=== PATIENT | female | born 1995 | race Two or more races ===

== ENCOUNTER 2016-10-30 16:29 | Observation (INO) | payer OTHER ==
[2016-10-30] MEDS ORDERED: EPSOM SALT 454 GM TP PRN (16:44)
[2016-10-30] MEDS ORDERED: LR 1,000 ML IV PRN (16:44)
[2016-10-30] MEDS ORDERED: OXYTOCIN/RINGERS LACTATE 1,000 ML IV PRN (16:44)
[2016-10-30] MEDS ORDERED: LIDOCAINE 1% 30 ML SDV SC PRN (16:44)
[2016-10-30] MEDS ORDERED: TERBUTALINE SULFATE 1 MG/ML VIAL IV PRN (16:44)
[2016-10-30] MEDS ORDERED: IBUPROFEN 600 MG TAB PO PRN (16:44)
[2016-10-30] MEDS ORDERED: AMPICILLIN SODIUM 2 GM in NS 100 ML IV ONE (16:44)
[2016-10-30] MEDS ORDERED: OLIVE OIL 118 ML BTL MISC PRN (16:44)
[2016-10-30] MEDS ORDERED: LIDOCAINE 1% 30 ML SDV ONE (17:16)
[2016-10-30] MEDS ORDERED: OLIVE OIL 118 ML BTL ONE (17:17)
[2016-10-30] MEDS ORDERED: AMMONIA AROMATIC 1 EACH AMP IH ONE (17:17)
[2016-10-30] MEDS ORDERED: OXYTOCIN 10 UNIT/ML VIAL ONE (17:17)
[2016-10-30] MEDS ORDERED: TERBUTALINE SULFATE 1 MG/ML VIAL ONE (17:17)
[2016-10-30] MEDS ORDERED: MISOPROSTOL 200 MCG TAB ONE (17:18)
--- NOTE | 2016-10-30 19:12 | GHP ---
[f rep st] PREOP HISTORY AND PHYSICAL DATE OF ADMISSION: 10/30/2016 ADMITTING DIAGNOSES: A 21-year-old, 3, para 1-0-1-1, at 39 weeks 4 days with an estimated due date of 11/02/2016 per outside records, presents complaining of contractions every 15 minutes since 5 o'clock this morning. The patient desires trial of labor after . HISTORY OF PRESENT COMPLAINT: The patient reports positive movement. Denies leaking of fluid, vaginal bleeding. States contractions started around 5 o'clock this morning, occurring 4 times per hour. The patient desires . PAST MEDICAL HISTORY: Elevated BMI. PAST SURGICAL HISTORY: 2013. MEDICATIONS: vitamin. ALLERGIES: No known drug allergies. 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 FAMILY HISTORY: Noncontributory. 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 Denies alcohol, tobacco, or drug use. OB HISTORY: Current complicated by prior . Desires TOLAC. GBS positive. 2014 at term for arrest of descent. Infant was in OP presentation, 7 pounds. 2016, SAB, no D & C. LABS: A positive, antibody negative, HIV negative, hepatitis B negative, syphilis negative, rubella immune, gonorrhea chlamydia negative. First trimester screen negative. One hour GTT 87. GBS positive. The patient transferred care at [address] [facility]. PHYSICAL EXAM: VITAL SIGNS: On physical exam vital signs are stable. GENERAL APPEARANCE: Alert and oriented x3. HEART: Rate regular. LUNGS: Clear to auscultation bilaterally. ABDOMEN: Gravid, nontender. SVE: 3/50/-3 at 1800. Cervix is soft, midline. No change from exam in office 2 hours ago. heart tracing category 1. heart tones 135 with moderate variability, positive accelerations, no decelerations. Contractions occasional. ASSESSMENT: A 21-year-old, 3, para 1-0-1-1, at 39 weeks and 4 days, presents in prodromal labor. Cervix unchanged from check in office 2 hours ago. PLAN: 1. Discharge to home. 2. Labor precautions. 3. Return if in labor. 4. Follow up Sunday for scheduled repeat . /[id number]/MODL MTDD
[2016-10-30] MEDS ORDERED: AMPICILLIN SODIUM 1 GM in NS 100 ML IV SCH (20:45)
== END 2016-10-30 19:11 | disposition home or self-care (01) ==
LOC: FLD 16:29 → INTOOBSV 16:29
PROVIDERS: ADMIT Advanced Practice Midwife; ATTEND Advanced Practice Midwife
DX: Z34.83 Encounter for supervision of other normal pregnancy, third trimester (principal); Z3A.39 39 weeks gestation of pregnancy
CPT/HCPCS: 59025; G0378; J0290; J2590; J3105

== ENCOUNTER 2016-11-02 10:35 | Inpatient (IN) | payer OTHER ==
--- NOTE | 2016-10-17 12:19 | GHP ---
[f rep st] HISTORY AND PHYSICAL Amended report DATE OF ADMISSION: 11/02/2016 ADMITTING DIAGNOSIS: 1. Intrauterine at 40 weeks and 1/7 days. 2. Previous section. HISTORY OF PRESENT ILLNESS: Patient is a 21-year-old, 3, para 1-0-1-1, at 40 weeks and 1/7 days with an estimated due date 11/02/2016 by last menstrual period 01/27/2016. The patient does have a history of a prior C- section secondary to a prolonged 2nd stage of labor. The patient desires a at this time and if still desires a repeat at 40 weeks. The patient presents to [facility] as a late transfer of care at 36 weeks and 5 days. This was due to an insurance change. All records were received and reviewed. The patient did have 1st trimester integrated screening , ultrasound and blood work which were all normal. The patient is negative for cystic fibrosis carrier. She declines SMA, fragile X screening at present. She is positive GBS on most recent screen. The patient did have both the flu vaccine and Tdap done July 2016. PAST OB HISTORY: In 2013, she had a full-term baby girl via C section, weighing 7 pounds 12 ounces at 40 weeks. She was in labor for 24 hours and had a prolonged 2nd stage of labor, baby was direct OP and she pushed x 6 hours. In 2015, she had a spontaneous ; did not require a D and C. 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 Cycles are regular every 28 days x4 days. She did have a positive test 03/28/2016 and last menstrual period 01/27/2016. Denies any history of abnormal Pap smears or any exposure to STDs. She did have a normal Pap smear, Gonorrhea and chlamydia cultures done in February of 2016 in beginning of the . PAST MEDICAL HISTORY: Unremarkable. PAST SURGICAL HISTORY: C section. MEDICATIONS: vitamins. ALLERGIES: No known drug allergies. SOCIAL HISTORY: Patient is . She lives with her Richard, and their daughter. Patient denies any alcohol or tobacco or illicit drug use. FAMILY HISTORY: Mother has diabetes, depression. Father is alcoholic and has a history of drug abuse. LABS: Patient is A positive, antibody screen negative. RPR nonreactive. Rubella immune. Hepatitis B surface antigen negative. HIV negative. Cystic fibrosis negative. Hepatitis C antibody negative. The urine culture first trimester is negative. Pap, gonorrhea, chlamydia cx's all negative. First trimester screen was negative in April 2016, as well as blood work. H and H 12.8 and 39.3. 1-hour Glucola normal at 87. GBS is positive 09/29/2016. PHYSICAL EXAM: VITAL SIGNS: On admission, vital signs are stable. Patient afebrile. GENERAL: Well-nourished, well-developed female in no apparent distress. Alert and oriented x3. CARDIOVASCULAR: Regular rate and rhythm. LUNGS: Clear to auscultation. ABDOMEN: Gravid, soft, nontender, nondistended. PELVIC: Deferred. EXTREMITIES: Normal to inspection without calf tenderness. Without edema. ASSESSMENT: Patient is a 21-year-old, 3, para 1-0-1-1, at 40 weeks and 1/7 days, who presents with a history of a previous section, for a repeat section. PLAN: 1. Admit to labor and delivery. 2. Consents were obtained in the office. Risks, benefits, alternatives were reviewed with the patient including, but not limited to, bleeding, infection, damage to surrounding organs. consents were also obtained. Pt is aware of risks and wants to proceed with repeat if still at 40 weeks. 3. 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 4. SCDs for DVT prophylaxis. /[id number]/MODL Add MRN#, 10/30/16, 11/02/16, lloyd COOK
[2016-11-02] MEDS ORDERED: TERBUTALINE SULFATE 1 MG/ML VIAL IV PRN (11:53)
[2016-11-02] MEDS ORDERED: EPSOM SALT 454 GM TP PRN (11:53)
[2016-11-02] MEDS ORDERED: LIDOCAINE 1% 30 ML SDV SC PRN (11:53)
[2016-11-02] MEDS ORDERED: OLIVE OIL 118 ML BTL MISC PRN (11:53)
[2016-11-02] MEDS ORDERED: AMPICILLIN SODIUM 2 GM in NS 100 ML IV ONE (11:53)
[2016-11-02] MEDS ORDERED: OXYTOCIN/RINGERS LACTATE 1,000 ML IV PRN (11:53)
[2016-11-02 12:13] LABS: % IMMATURE GRANULYOCYTES 0.8 % (0.0-1.1); ABSOLUTE IMMATURE GRANULOCYTES 0.08 10^3/uL (0.00-0.10); ADD DIFF? NO; ADD MORPH? NO; ADD SCAN? NO; ATYPICAL LYMPHOCYTE FLAG 10 (0-99); FRAGMENT RBC FLAG 0 (0-99); HEMATOCRIT 36.5 % (38.0-47.0); LEFT SHIFT FLG 0 (0-99); LIPEMIA HEMOLYSIS FLAG 80 (0-99); MEAN CELL HEMOGLOBIN 27.6 pg (27.9-34.1); MEAN CELL HEMOGLOBIN CONCENTR. 32.9 g/dL (32.4-36.7); MEAN CELL VOLUME 84.1 fL (81.5-99.8); MEAN PLATELET VOLUME 11.2 fL (8.7-11.7); PLATELET CLUMPS FLAG 0 (0-99); PLATELET COUNT 284 10^3/uL (150-400); RED BLOOD CELL COUNT 4.34 10^6/uL (4.18-5.33); RED CELL DISTRIBUTION WIDTH 14.3 % (11.5-15.2)
[2016-11-02] MEDS: LR 1,000 ML IV PRN (12:30)
--- NOTE | 2016-11-02 12:40 | GHP ---
[f rep st] PREOP HISTORY AND PHYSICAL DATE OF ADMISSION: 11/02/2016 ADMITTING DIAGNOSIS: Intrauterine at 40-and-0/7 weeks' gestation with spontaneous rupture of the membranes and spontaneous labor. HISTORY OF PRESENT ILLNESS: The lady is a 21-year-old, 3, para 1-0-1-1, with a last menstru al period of 01/27/2016 and EDC of 11/02/2016, which was confirmed by a 1st trimester ultrasound. Angela fabijose transferred care at 36-and-5/7 to [facility] and had good care. The patient has a history of a with G1 secondary to arrest of descent. She had 5-hour 2nd stage, and the baby was OP presentation, weighed 7 pounds 12 ounces. She has been consented on typ es of mode of delivery for this baby, and desires to have a trial of labor after section. She understands the risks and benefits of this. She had spontaneous rupture of membranes at 8 a.m., with clear fluid, has had increasing contraction s over the last several hours, and they are currently every 5-10 minutes. RISK FACTORS: Late transfer of care, history of , desires TOLAC and positive GBS. PAST OBSTETRICAL HISTORY: In January of 2014, she had a viable female, 7 pounds 12 ounces, by C-sectio n secondary to failure to descend, 5-hour 2nd stage, and OP presentation. In September of 2015 she had a spontaneous . No D and C, and this is her 3rd . PAST GYNECOLOGICAL HISTORY: She has no significant gynecological history. She has a history of a N explanon removed. No history of abnormal Paps or any sexually transmitted diseases. MEDICAL HISTORY: She has no significant medical problems. The only surgery she has had is the C-se ction. She has increased BMI, weight is 229 pounds. ALLERGIES: No known drug allergies. MEDICATIONS: Include vitamins and DHA. LABS: She is A positive, antibody negative, RPR nonreactive, rubella immune, hepatitis negative, HI V negative. Cystic fibrosis negative. Hep C antibody is negative. Pap normal. Gonorrhea and chla mydia negative. One-hour GTT 87. GBS is positive. She declined genetic screening tests. SOCIAL HISTORY: She is . She lives with her . She is a [id number] mom. He works as an coil machine supervisor. Denies tobacco, alcohol and drug use. FAMILY HISTORY: Her mother has adult-onset diabetes and depression. Father has alcohol and drug ab use. No other medical problems in the family. OBJECTIVE: VITAL SIGNS: Today she is afebrile. Vital signs are stable. OBSTETRIC: heart tones are 120s to 130s, reactive, moderate variability, category 1. She is candy every 10 minutes. Cervix is 5, 80%, and -1. Grossly ruptured but nitrazine positive fo r clear fluid. The baby is cephalic. ASSESSMENT/PLAN: 21-year-old, 3, para 1-0-1-1, at 40 weeks', with spontaneous rupture of me mbranes in spontaneous labor. Patient desires trial of labor after section. The patient h as an IV getting started, and she will have ampicillin per protocol for GBS prophylaxis. She will h ave continuous monitoring and expectant labor management with careful monitoring of progress. Anesthesia and OB will be in-house. /[id number]/MODL
--- NOTE | 2016-11-02 14:13 | OBPROG ---
OBG Progress Note Assessment/Plan: Assessment: 21 y/o @ 40 weeks with SROM and attempting TOLAC Plan: Good cervical change with current contraction pattern, will continue expectant labor management. We discussed pain management options and she may try to get in the tub. We discussed IV Fentanyl prn, but not after 8 cm dilation, NO and possible epidural. She is considering. status reassuring. Anesthesia and OB are in the hospital today observing TOLAC. 11/02/16 14:11 Subjective: Pt is feeling stronger and longer contractions that still feel to be about 10 minutes apart. Objective: 11/02/16 11:30 Patient ABO/Rh A POSITIVE 11/02/16 11:30 - SVE Dilation (cm): 6 Effacement (%): 90 Station: 0 Current Contraction Pattern: Regular (Q10) FHR (bpm): 140 FHR Pattern Variability: Moderate FHR Category: 1 Membranes: SROM Amniotic Fluid Color: Clear ICD10 Worksheet Patient Problems: Problems Problem Status Onset Previous delivery affecting Acute Spontaneous onset of labor Acute - ICD10 Problem Qualifiers (1) Previous delivery affecting (2) Spontaneous onset of labor
[2016-11-02] MEDS ORDERED: fentaNYL 100 MCG/2 ML INJ ONE (16:34)
[2016-11-02] MEDS ORDERED: PHENYLEPHRINE HCL 100 MCG/ML SYR ONE (16:35)
[2016-11-02] MEDS ORDERED: fentaNYL 2MCG/ML/BUP 0.1% RTU 100 ML BAG EP ONE (16:35)
[2016-11-02] MEDS ORDERED: BUPIVACAINE 0.25% 30 ML SDV ONE (16:35)
[2016-11-02] MEDS: AMPICILLIN SODIUM 1 GM in NS 100 ML IV SCH ×2 (16:48→20:31)
[2016-11-02] MEDS ORDERED: AMMONIA AROMATIC 1 EACH AMP IH ONE (17:52)
[2016-11-02] MEDS ORDERED: TERBUTALINE SULFATE 1 MG/ML VIAL ONE ×2 (17:52→17:55)
[2016-11-02] MEDS ORDERED: OLIVE OIL 118 ML BTL ONE (17:52)
[2016-11-02] MEDS ORDERED: LIDOCAINE 1% 30 ML SDV ONE (17:52)
[2016-11-02] MEDS ORDERED: OXYTOCIN 10 UNIT/ML VIAL ONE ×2 (17:53→17:55)
[2016-11-02] MEDS ORDERED: MISOPROSTOL 200 MCG TAB ONE (17:55)
[2016-11-02] MEDS ORDERED: ONDANSETRON 4 MG/2 ML VIAL IVP PRN (18:00)
[2016-11-02] MEDS ORDERED: fentaNYL 2MCG/ML/BUP 0.1% RTU 100 ML EP SCH (18:00)
[2016-11-02] MEDS ORDERED: PHENYLEPHRINE HCL 100 MCG/ML SYR IVP PRN (18:00)
[2016-11-02] MEDS ORDERED: LR 500 ML IV SCH (18:00)
--- NOTE | 2016-11-02 18:06 | PREANESOB ---
Obstetric Pre-Anesthesia Info - General Info Proposed Procedure: Labor and delivery (TOLAC). : 3 Para: 1 WBD: 40 - Info Status: Full Term Monitors: External FHR Baseline (bpm): 130 FHR Pattern: Reassuring - Labor Status Cervical Dilation per last OB SVE: 5 Station per last OB SVE: 0 Amniotic Fluid Color: Clear Indications for Labor Analgesia: Pain Control Labor Epidural: Proposed (TOLAC) Anesthesia ROS: Previous epidural for labor and C Section. Allergies/Adverse Reactions: Allergy/AdvReac Type Severity Reaction Status Date / Time No Known Allergies Allergy Unverified 10/30/16 16:43 Home Medications: Medication Instructions Recorded Vit27&Calcium/Iron/FA 1 each PO DAILY 10/30/16 [ Rx 1 Tablet (RX)] Visit Medications: Generic Name Dose Route Start Last Admin Trade Name Freq PRN Reason Stop Dose Admin Diphenhydramine HCl 25 - 50 mg 11/02/16 18:00 Benadryl Injection IVP 05/01/17 17:59 Q6HRS PRN Itching Ampicillin Sodium 1 gm/ Sodium 100 mls @ 200 mls/hr 11/02/16 15:55 11/02/16 16:48 Chloride IV 12/02/16 15:54 100 mls Q4H ORA Administration Protocol Lactated Ringer's 1,000 mls @ 0 mls/hr 11/02/16 11:53 11/02/16 12:30 Lr IV 05/01/17 11:52 1,000 mls PRN PRN Administration SEE PROTOCOL CONDITIONS Protocol Per Protocol Oxytocin/Lactated Ringer's 1,000 mls @ 150 mls/hr 11/02/16 11:53 Pitocin 20 Units/Lr (Premix) IV PRN PRN Post- bleeding Fentanyl/Bupivacaine HCl 100 mls @ 0 mls/hr 11/02/16 18:00 Fentanyl/Bupivacaine/Ns 2 Mcg/Ml 0.1% (Premix EP 11/12/16 17:59 CONT ORA Protocol As Directed Lactated Ringer's 500 mls @ 0 mls/hr 11/02/16 18:00 Lr IV 05/01/17 17:59 CONT ORA As Directed Ibuprofen 600 mg 11/02/16 11:53 Motrin PO 05/01/17 11:52 Q6HRS PRN post , inflammation Lidocaine HCl 30 ml 11/02/16 11:53 Lidocaine Hcl 1% SC 05/01/17 11:52 ONCE PRN Episiotomy Magnesium Sulfate 454 gm 11/02/16 11:53 Epsom Salt TP 05/01/17 11:52 PRN PRN perineal discomfort [place] Oil 118 ml 11/02/16 11:53 Sweet Oil MISC 05/01/17 11:52 ONCE PRN preneal massage Ondansetron HCl 4 mg 11/02/16 18:00 Zofran IVP 05/01/17 17:59 Q4HRS PRN Nausea/Vomiting, Can't Take PO Phenylephrine HCl 100 mcg 11/02/16 18:00 Shun-Synephrine IVP 05/01/17 17:59 .Q2M PRN Hypotension Terbutaline Sulfate 0.25 mg 11/02/16 11:53 Brethine IV 05/01/17 11:52 ONCE PRN Tachysystole Discontinued Medications Generic Name Dose Route Start Last Admin Trade Name Freq PRN Reason Stop Dose Admin Ammonia (Aromatic Spirit) Confirm 11/02/16 17:52 Ammonia Aromatic Administered 11/02/16 17:53 Dose 1 each IH .STK-MED ONE Bupivacaine HCl Confirm 11/02/16 16:35 Sensorcaine 0.25% Sdv Administered 11/02/16 16:36 Dose 30 ml .ROUTE .STK-MED ONE Ephedrine Sulfate Confirm 11/02/16 17:52 Ephedrine Sulfate Administered 11/02/16 17:53 Dose 50 mg .ROUTE .STK-MED ONE Fentanyl Confirm 11/02/16 16:34 Sublimaze Administered 11/02/16 16:35 Dose 100 mcg .ROUTE .STK-MED ONE Fentanyl/Bupivacaine HCl Confirm 11/02/16 16:35 Fentanyl/Bupivacaine/Ns 2 Mcg/Ml 0.1% (Premix Administered 11/02/16 16:36 Dose 100 ml EP .STK-MED ONE Ampicillin Sodium 2 gm/ Sodium 110 mls @ 220 mls/hr 11/02/16 11:53 11/02/16 12:55 Chloride IV 11/02/16 12:22 110 mls ONCE ONE Administration Protocol Lidocaine HCl Confirm 11/02/16 17:52 Lidocaine Hcl 1% Administered 11/02/16 17:53 Dose 30 ml .ROUTE .STK-MED ONE Misoprostol Confirm 11/02/16 17:55 Cytotec Administered 11/02/16 17:56 Dose 800 mcg .ROUTE .STK-MED ONE [place] Oil Confirm 11/02/16 17:52 Sweet Oil Administered 11/02/16 17:53 Dose 118 ml .ROUTE .STK-MED ONE Oxytocin Confirm 11/02/16 17:53 Pitocin Administered 11/02/16 17:54 Dose 40 unit .ROUTE .STK-MED ONE Oxytocin Confirm 11/02/16 17:55 Pitocin Administered 11/02/16 17:56 Dose 40 unit .ROUTE .STK-MED ONE Phenylephrine HCl Confirm 11/02/16 16:35 Shun-Synephrine Administered 11/02/16 16:36 Dose 1,000 mcg .ROUTE .STK-MED ONE Terbutaline Sulfate Confirm 11/02/16 17:52 Brethine Administered 11/02/16 17:53 Dose 1 mg .ROUTE .STK-MED ONE Terbutaline Sulfate Confirm 11/02/16 17:55 Brethine Administered 11/02/16 17:56 Dose 1 mg .ROUTE .STK-MED ONE - Anesthesia History Response to Local Anesthetics: Normal Anesthesia & Operative History: No Prior Problems - Social History Substance Use/Abuse: Denies - Focused Exam Blood Pressure: 114/62 Heart Rate: 84 Height/Weight (Nursing): Height 167.64 cm Weight 107.501 kg Physical Exam: Within normal limits. ASA Status: II Labs: 11/02/16 11:30 Patient ABO/Rh A POSITIVE 11/02/16 11:30 - Plan Anesthetic Plan: CSE Consent Signed and on Chart: Yes Patient/Guardian Understands and Agrees to Plan: Yes
--- NOTE | 2016-11-02 18:14 | POSTANESTH ---
Post Anesthetic Evaluation Cardiovascular Status: Normal, Stable, Similar to Pre-Op Cond Respiratory Status: Normal, Stable, Similar to Pre-op Cond. Level of Consciousness/Mental Status: Can Participate in Eval, Alert and Oriented Pain Control: Adequate, Prn Tx Ordered Nausea/Vomiting Control: Adequate, Prn Tx Ordered Complications Possibly Related to Anesthesia: None Noted (Tolerated CSE well, stable, comfortable.)
--- NOTE | 2016-11-02 18:41 | OBPROG ---
OBG Progress Note Assessment/Plan: Assessment: 21 y/o @ 40 weeks with SROM and attempting TOLAC Plan: Good cervical change now. Continue expectant management and will re check in 1- 2 hours. 11/02/16 14:11 11/02/16 18:40 Subjective: Pt is now comfortable with her epidural. She feels some contractions. Objective: 11/02/16 11:30 Patient ABO/Rh A POSITIVE 11/02/16 11:30 Temp Pulse Resp BP Pulse Ox 84 114/62 11/02/16 18:09 11/02/16 18:09 - SVE Dilation (cm): 9 Effacement (%): 90 Station: 0 Current Contraction Pattern: Regular (Q4) FHR (bpm): 140 FHR Pattern Variability: Moderate FHR Category: 1 Membranes: SROM Amniotic Fluid Color: Clear ICD10 Worksheet Patient Problems: Problems Problem Status Onset Previous delivery affecting Acute Spontaneous onset of labor Acute - ICD10 Problem Qualifiers (1) Previous delivery affecting (2) Spontaneous onset of labor
[2016-11-02] MEDS ORDERED: LR 500 ML IV PRN (21:23)
[2016-11-02] MEDS ORDERED: OXYTOCIN/RINGERS LACTATE 500 ML IV SCH (21:30)
--- NOTE | 2016-11-02 21:30 | OBPROG ---
OBG Progress Note Assessment/Plan: Assessment: 21 y/o @ 40 weeks with SROM and attempting TOLAC Plan: Contractions are mild and spaced apart now, will begin pitocin augmentation. I explained the hymenal septum to the patient and her . I do not feel it will impact delivery and we will observe bleeding for now. staus reassuring. 11/02/16 14:11 11/02/16 18:40 11/02/16 21:26 Subjective: Pt is pushing with contractions but having min sensation of pressure. Objective: 11/02/16 11:30 Patient ABO/Rh A POSITIVE 11/02/16 11:30 Temp Pulse Resp BP Pulse Ox 84 114/62 11/02/16 18:09 11/02/16 18:09 - SVE Dilation (cm): 10 Effacement (%): 100 Station: +2 Current Contraction Pattern: Regular (Q 4) FHR (bpm): 130 FHR Pattern Variability: Moderate FHR Category: 1 Membranes: SROM Amniotic Fluid Color: Clear - Physical Exam Genitourinary: other (on pelvic exam vertical hymenal septum palpated + bleeding with exam and pushing) ICD10 Worksheet Patient Problems: Problems Problem Status Onset Previous delivery affecting Acute Spontaneous onset of labor Acute - ICD10 Problem Qualifiers (1) Previous delivery affecting (2) Spontaneous onset of labor
[2016-11-03] MEDS ORDERED: ceFAZolin 2 GM in NS 100 ML IV ONE (00:22)
[2016-11-03] MEDS ORDERED: fentaNYL 100 MCG/2 ML INJ ONE (00:22)
[2016-11-03] MEDS ORDERED: CEFAZOLIN 2 GM/DEXTROSE/100 ML BAG IV ONE (00:23)
[2016-11-03] MEDS ORDERED: LIDO/EPI 2% **for epidural** 20 ML SDV ONE (00:24)
[2016-11-03] MEDS ORDERED: morphINE PF 5 MG/10 ML INJ ONE (00:58)
[2016-11-03] MEDS ORDERED: ONDANSETRON 4 MG/2 ML VIAL ONE (01:02)
[2016-11-03] MEDS ORDERED: MEPERIDINE 25 MG/ML SYR ONE (01:09)
[2016-11-03 01:24] LABS: BASE EXCESS CORD -3.7 mEq/L (-13.6--3.2); CORD BLOOD PCO2 55.8 mmHg (37-60); PH ARTERIAL CORD BLOOD 7.26 (7.10-7.37)
[2016-11-03 01:28] LABS: PH VENOUS CORD BLOOD 7.36 (7.20-7.42)
[2016-11-03] MEDS ORDERED: METHYLENE BLUE 0.5% 50 MG/10 ML AMP ONE (01:28)
[2016-11-03] MEDS ORDERED: OXYTOCIN 100 UNITS/10 ML VIAL ONE (01:31)
[2016-11-03] MEDS ORDERED: METOCLOPRAMIDE 10 MG/2 ML VIAL ONE ×2 (01:48)
[2016-11-03] MEDS ORDERED: SIMETHICONE 80 MG TAB CHEW PO PRN (02:27)
[2016-11-03] MEDS ORDERED: ONDANSETRON 4 MG/2 ML VIAL IVP PRN (02:27)
[2016-11-03] MEDS ORDERED: PHENYLEPHRINE HCL 100 MCG/ML SYR IVP PRN (02:27)
[2016-11-03] MEDS ORDERED: NALOXONE HCL 0.4 MG/ML INJ IVP PRN (02:27)
--- NOTE | 2016-11-03 02:27 | OBPROC ---
- Delivery Pre-op Diagnoses: IUP @ 40 weeks, arrest of descent, failed TOLAC Post-op Diagnoses: same Procedure: Repeat Surgeon: Nani Borges Bullet Slugs Inspector: Neisha Alvarez Anesthesiologist: Israel Bustillo Quantitative Associate/WELDER FITTER: Molly Nova Anesthesia: Epidural Complications: Other (Specify) (Bandal's ring around lower uterine segment, incision extended inferiorly toward cervix, bladder intact) IV Fluid (ml): 1,500 EBL: 800 Cord Gases: Cord Gases Cord Blood PCO2 55.8 mmHg (37-60) 11/03/16 01:15 Cord Base Excess -3.7 mEq/L (-13.6--3.2) 11/03/16 01:15 Cord ABG pH 7.26 (7.10-7.37) 11/03/16 01:15 Cord VBG pH 7.36 (7.20-7.42) 11/03/16 01:15 - Info Infant A Delivery Date: 11/03/16 Delivery Time: 01:05 Sex of Infant: Male Weight (gm): 4250 g Score (1 Min): 8 Score (5 Min): 9
[2016-11-03] MEDS ORDERED: BISACODYL 10 MG SUPP PR PRN (02:29)
[2016-11-03] MEDS ORDERED: POLYETHYLENE GLYCOL 3350 17 GM PKT PO PRN (02:29)
[2016-11-03] MEDS ORDERED: LACTULOSE 20 GM/30 ML UDCUP PO PRN (02:29)
[2016-11-03] MEDS ORDERED: MAGNESIUM HYDROXIDE 30 ML UDCUP PO PRN (02:29)
[2016-11-03] MEDS: AMPICILLIN SODIUM 1 GM in NS 100 ML IV SCH (03:04)
[2016-11-03] MEDS: KETOROLAC 30 MG/1 ML SDV IVP PRN ×4 (03:22→21:31)
--- NOTE | 2016-11-03 04:08 | GOP ---
[f rep st] OPERATIVE REPORT DATE OF OPERATION: 11/03/2016 SURGEON: Nani Borges MD SENIOR SALES ENGINEER: Nikki Alvarez, certified nurse nutrition services assistant. ANESTHESIA: Epidural anesthesia. ANESTHESIOLOGIST: Israel Bustillo MD PREOPERATIVE DIAGNOSIS: 1. Intrauterine at 40-0/7 weeks' gestation with spontaneous rupture of membranes, in acti ve labor, for trial of labor after section. 2. Arrest of descent and failed trial of labor. POSTOPERATIVE DIAGNOSIS: 1. Intrauterine at 40-0/7 weeks' gestation with spontaneous rupture of membranes, in acti ve labor, for trial of labor after section. 2. Arrest of descent and failed trial of labor. PROCEDURE PERFORMED: Repeat lower transverse section. FINDINGS: Viable male. Apgars of 8 and 9. Weight of 4250 g. ESTIMATED BLOOD LOSS: 800 cc. INDICATIONS: The patient is a 21-year-old, 3, para 1-0-1-1, who presented at 40-0/7 weeks' gestation with spontaneous rupture of membranes of clear fluid at 8 a.m. She was admitted, given am picillin for GBS prophylaxis and had expectant labor management. She progressed to fully dilated. She began her 2nd stage of pushing and received Pitocin for augmentation to increase contraction str ength and frequency. Over the course of her 2-1/2 hour 2nd stage, the baby's heart tones were reassuring. The patient had good pushing effort with little descent of the head. The patien t's history for her previous was arrest of descent. After a 5-hour 2nd stage and OP baby, we decided after 2-1/2 hours that this was sufficient trial and to proceed with section. The patient was consented for the procedure. She understood the risks and benefits. The risks, inc luding bleeding, infection, damage to internal organs, uterus, tubes, ovaries, bowel, bladder, nerve s, blood vessels, ureters, risk of injury, risk of hemorrhage requiring blood transfusion, hys terectomy, or . She understood these risks and benefits and agreed to proceed. DESCRIPTION OF PROCEDURE: Patient was taken to the operating room where her epidural was dosed and found to be adequate. A [place] catheter previously had been placed. She was prepped and draped in a dorsal supine position with a leftward tilt. After adequate anesthesia was assured, a transverse s kin incision was made with a scalpel in the previous scar. The incision was carried down to the underlying layer of fascia with the Bovie. The fascia was incised in the midline. Fascial i ncision was extended laterally with Whitley scissors. Superior aspect of the fascial incision was gras ped with Alana clamps, elevated, and the rectus muscles were dissected off sharply. Inferior aspec t of the fascial incision was grasped with Alana clamps, elevated, and the rectus muscles were diss ected off sharply. Rectus muscles were in the midline. Peritoneum was entered sharply. Peritoneal incision was extended superiorly and inferiorly with good visualization of the bladder. Bladder blade was inserted and there was noted to be a large bulging lower uterine segment with a ti ght band immediately superior to the bladder flap. The vesicouterine peritoneum was entered sharply and extended laterally. The bladder was gently dissected inferiorly and the bladder blade was rein serted. A uterine incision was made superior to that band and the incision was extended laterally w [facility] banded scissors. The amniotic fluid was clear upon entry in the uterine cavity. The baby was i n direct occiput posterior presentation and the head was low into the pelvis. Because of the tight Bandl's ring around the lower uterine segment, I was not able to manipulate the head to allow for de livery; therefore, I extended the uterine incision laterally and then inferiorly into the lower uter ine segment toward the cervix. The baby was delivered atraumatically. Mouth and nose were bulb suc tioned. Cord was clamped and cut. was handed off to the waiting nurse practitioner s. Cord blood gas, as well as cord bloods were sent. The placenta was removed manually. The uteru s was exteriorized, cleared of all clots and debris. Careful inspection was then made of the lower uterine segment toward the cervix and the bladder was gently dissected off the lower uterine segment uterine muscle. The uterine muscle hysterotomy was closed with 0 Vicryl in a running locked fashio n. Second imbricating layer of suture was also performed with 0 Vicryl and hemostasis was obtained. The bladder was then backfilled with sterile saline with methylene blue. A total of 250 cc was in serted and the bladder was intact. There was no leaking. There was no suture present in the bladde r and hemostasis was assured. The bladder was then drained. The uterus was returned to the abdomen . Gutters were cleared of all clots and debris. Reinspection of the uterine incision revealed good hemostasis. Avitene was placed in that area for reassurance of hemostasis. The rectus muscles wer e approximated with 2-0 Vicryl in an inverted mattress fashion. The fascia was closed with #1 Vicry l. The subcutaneous layer was closed with 2-0 Vicryl, and skin was closed with 4-0 Vicryl. The pat ient tolerated the procedure well. Sponge, lap, needle, and instrument counts were correct x2. Pat ient went to the recovery room in good condition. FLUID REPLACEMENT: 1500 cc. URINE OUTPUT: 300 cc. /[id number]/MODL
[2016-11-03] MEDS: LR 1,000 ML IV PRN (06:34)
[2016-11-03] MEDS: SENNOSIDES/DOCUSATE SODIUM TAB PO SCH ×2 (09:17→22:16)
[2016-11-03] MEDS: HYDROCODONE/APAP 5/325 TAB PO PRN ×3 (13:21→21:30)
[2016-11-04] MEDS: HYDROCODONE/APAP 5/325 TAB PO PRN ×6 (01:29→20:59)
[2016-11-04] MEDS: IBUPROFEN 600 MG TAB PO PRN ×4 (03:35→22:05)
[2016-11-04] MEDS: SENNOSIDES/DOCUSATE SODIUM TAB PO SCH ×2 (08:27→20:59)
--- NOTE | 2016-11-04 10:23 | SOAPPROG ---
SOAP Progress Note Assessment/Plan: Assessment: 21y/o day 1 s/p repeat C/S for arrest of descent/failed TOLAC on 11/03/16 Anemia Plan: Start iron TID Con't routine PP care 11/04/16 10:20 Subjective: Pt resting in bed with on chest. Pain well-controlled. Reports going well. Lochia light. Tolerating regular diet. Passing flatus, denies BM. Objective: Vital Signs Temp Pulse Resp BP Pulse Ox 37.1 C 98 16 105/61 93 11/04/16 01:10 11/04/16 01:10 11/04/16 01:10 11/04/16 01:10 11/04/16 01:10 Laboratory Results 11/04/16 05:00 11/03/16 11/04/16 11/05/16 05:59 05:59 05:59 Intake Total 1500 500 Output Total 1200 2525 Balance 300 -2025 Physical Exam - Physical Exam General Appearance: alert, no apparent distress Respiratory: lungs clear, normal breath sounds Cardiac/Chest: regular rate, rhythm Abdomen: non-tender, soft, other (fundus firm @U) Pelvic Exam: vaginal bleeding (lochia light) Skin: normal color, warm/dry Extremities: normal range of motion, pedal edema (+1 BLE edema) Neuro/Psych: alert, normal mood/affect, oriented x 3 ICD10 Worksheet Patient Problems: Problems Problem Status Onset Previous delivery affecting Acute Spontaneous onset of labor Acute
[2016-11-04] MEDS: IRON POLYSAC/IRON HEME 28 MG TAB PO SCH ×2 (16:11→22:05)
[2016-11-04 17:00] VITALS: O2SAT 96
[2016-11-04] MEDS: DOCUSATE SODIUM 100 MG CAP PO PRN (20:59)
[2016-11-05] MEDS: HYDROCODONE/APAP 5/325 TAB PO PRN ×5 (02:02→20:25)
[2016-11-05] MEDS: IBUPROFEN 600 MG TAB PO PRN ×3 (05:47→18:21)
--- NOTE | 2016-11-05 07:53 | OBPROG ---
OBG Progress Note Assessment/Plan: Assessment: 1) s/p RCS, failed TOLAC secondary to arrest of descent POD # 2 - pt is stable 2) Anemia - on iron, asymptomatic Plan: Continue routine post-op care Encourage ambulation and IS Plan for d/c home in 24 hrs 11/05/16 07:50 Subjective: Pt seen and examined. Doing well with no complaints. Pain is well controlled. Pt is OOB, nilesh reg diet, voiding and passing flatus. No BM yet. Moderate lochia. without difficulty. Denies any dizziness when um ambulating. Wants to go home in am 4/10. Objective: 11/04/16 05:00 Patient ABO/Rh A POSITIVE 11/02/16 11:30 Temp Pulse Resp BP Pulse Ox 36.7 C 94 18 112/71 96 11/04/16 20:20 11/04/16 20:20 11/04/16 20:20 11/04/16 20:20 11/04/16 20:20 Uterine Position/Fundal Height: Umbilicus -2 Uterine Tone: Firm - Physical Exam General Appearance: WD/WN, alert, no apparent distress Respiratory: lungs clear, normal breath sounds Cardiac/Chest: regular rate, rhythm Abdomen: normal bowel sounds, non-tender, soft, flatus (+), incision (C/D/I with steri strips) Genitourinary: lochia (moderate) Extremities: non-tender, normal inspection Neuro/Psych: no motor/sensory deficits, alert, normal mood/affect, oriented x 3 ICD10 Worksheet Patient Problems: Problems Problem Status Onset Previous delivery affecting Acute Spontaneous onset of labor Acute
[2016-11-05] MEDS: SENNOSIDES/DOCUSATE SODIUM TAB PO SCH ×2 (08:49→20:25)
[2016-11-05] MEDS: IRON POLYSAC/IRON HEME 28 MG TAB PO SCH ×3 (08:49→20:25)
[2016-11-05 20:12] VITALS: RESP 16
[2016-11-05] MEDS: DOCUSATE SODIUM 100 MG CAP PO PRN (20:25)
[2016-11-06] MEDS: HYDROCODONE/APAP 5/325 TAB PO PRN ×2 (00:29→09:57)
[2016-11-06] MEDS: IBUPROFEN 600 MG TAB PO PRN ×3 (00:29→12:33)
[2016-11-06 07:50] VITALS: BP 105/64; PULSE 87; TEMP 97.6
[2016-11-06] MEDS: SENNOSIDES/DOCUSATE SODIUM TAB PO SCH (08:39)
[2016-11-06] MEDS: IRON POLYSAC/IRON HEME 28 MG TAB PO SCH (08:40)
--- NOTE | 2016-11-06 10:24 | SOAPPROG ---
SOAP Progress Note Assessment/Plan: Assessment: pain well managed well with ss assistance greater weight loss ff@u scant rubra lochia incision well approximated no ss of infection ss well applied voiding without difficulty passing gas edema 2+ in lower extremitys Plan:Discharge to home with instructions fu 2-4-6 weeks pp discussed ss infection, pelvic rest, pain management, exercise, contraception, depression, , rest, no driving care x 2 weeks. Verbalized understanding of all of the above 11/06/16 10:24 Subjective: Doing well denies difficulties. with some assistance. SS greater weight loss of baby Objective: Vital Signs Temp Pulse Resp BP Pulse Ox 36.4 C 87 16 105/64 96 11/06/16 07:49 11/06/16 07:49 11/06/16 07:49 11/06/16 07:49 11/06/16 07:49 Laboratory Results 11/04/16 05:00 11/05/16 11/06/16 11/07/16 05:59 05:59 05:59 Output Total 500 Balance -500 - Time Spent With Patient Time Spent With Patient: 20 minutes - Pending Discharge Pending Discharge Date: 11/06/16 Pending Discharge Time: 11:00 Physical Exam - Physical Exam General Appearance: WD/WN, alert, no apparent distress Respiratory: chest non-tender, lungs clear, normal breath sounds Cardiac/Chest: regular rate, rhythm Abdomen: normal bowel sounds, other (FF2U) Pelvic Exam: vaginal bleeding (scant rubra lochia) Skin: normal color, warm/dry Extremities: normal range of motion, Agnes's sign (negative bilaterally/ dtrs1+ bilaterally) Neuro/Psych: no motor/sensory deficits, alert, normal mood/affect, oriented x 3 ICD10 Worksheet Patient Problems: Problems Problem Status Onset Previous delivery affecting Acute Spontaneous onset of labor Acute
== END 2016-11-06 12:30 | disposition home or self-care (01) | DRG 766 ==
LOC: FLD 10:35 → FOB 11-03 04:00
PROVIDERS: ADMIT Obstetrics & Gynecology; ATTEND Obstetrics & Gynecology
PROC: 10D00Z1 Extraction of Products of Conception, Low, Open Approach (ICD-10-PCS; principal; 2016-11-03)
DX: O32.4XX0 Maternal care for high head at term, not applicable or unspecified (principal); O63.1 Prolonged second stage (of labor); O62.4 Hypertonic, incoordinate, and prolonged uterine contractions; O34.63 Maternal care for abnormality of vagina, third trimester; O34.211 Maternal care for low transverse scar from previous cesarean delivery; O90.81 Anemia of the puerperium; O99.820 Streptococcus B carrier state complicating pregnancy; Z3A.40 40 weeks gestation of pregnancy; O65.5 Obstructed labor due to abnormality of maternal pelvic organs; Z37.0 Single live birth
CPT/HCPCS: J0290; J0690; J1885; J2274; J2370; J2405; J2590; J2765; J3010; J3105; Q9968